=== PATIENT | male | born 1965 | race Caucasian/White ===

== ENCOUNTER 2019-01-09 13:24 | Inpatient (IN) | payer OTHER ==
[2019-01-09] MEDS ORDERED: LORazepam 2 MG/ML INJ IM STA ×2 (13:32→13:35)
[2019-01-09] MEDS ORDERED: THIAMINE 100 MG/ML 2 ML VIAL IM STA (13:33)
[2019-01-09] MEDS ORDERED: SODIUM CHLORIDE 0.9% 1,000 ML IV STA (13:33)
[2019-01-09] MEDS ORDERED: LORazepam 2 MG/ML INJ IV PRN ×3 (13:33)
[2019-01-09] MEDS: LORazepam 2 MG/ML INJ IV PRN ×5 (13:46→23:50)
--- NOTE | 2019-01-09 14:03 | ED ---
General Adult HPI - General Chief complaint: Seizure Stated complaint: Seizure Time Seen by Provider: 01/09/19 13:30 Source: patient, family Mode of arrival: ambulatory Limitations: altered mental status - History of Present Illness Initial comments: Dictation was produced using [employer] dictation software. please excuse any grammatical, word or spelling errors. Chief Complaint: 53-year-old male presents for seizures. History of Present Illness: Patient is a 53-year-old male. He is brought here by his daughter. I did not speak with the daughter yet. He was brought here after he had episode of seizure. Patient is a daily EtOH drinker. He allegedly had a seizure earlier today. They brought him here for medical evaluation. Patient is a poor historian at this time. He appears to be very agitated and diaphoretic. PHYSICAL EXAM: General Impression: Alert and oriented x2/3, agitated, diaphoretic HEENT: Normocephalic atraumatic, extra-ocular movements intact, pupils equal and reactive to light bilaterally, dry mucous membranes Cardiovascular: Tachycardic Chest: Lungs clear to auscultation bilaterally, no rhonchi, no wheeze, no rales Abdomen: Bowel sounds present, abdomen soft, non-tender, non-distended, no organomegaly Musculoskeletal: Pulses present and equal in all extremities, no peripheral edema Motor: no focal deficits noted Neurological: no focal motor or sensory deficits noted Skin: Intact with no visualized rashes Psych: Agitated, aggressive ED course: 53-year-old male presents with severe agitation after seizure. Patient is severely agitated. He was put in 4-point restraints. Patient diaphoretic. Patient moved to resuscitation bay. IV access was established patient was given multiple doses of Ativan. Laboratory evaluation obtained. CBC shows mild megaloblastic anemia and thrombocytopenia. This is likely secondary to chronic alcohol abuse and mild alcohol-induced bone marrow suppression metabolic panel was obtained. Patient has a gap acidosis with a lactic of 14.4 which is clearly secondary to seizure. No indication for antibiotics as I do not believe this is sepsis. Patient has mild transaminitis likely secondary to hepatitis from chronic alcohol abuse. Patient also has mild pancreatitis. Urinalysis is unremarkable. Rapid urine drug screen is positive for marijuana. Serum alcohol is 22. She required multiple doses of Ativan. Patient was observed in emergency department for several hours and found to be in stable condition. Patient reevaluated. He states he feels much better. His vital signs have improved. Patient's symptoms are secondary to alcohol withdrawal. Patient be admitted for continued seawall protocol and variable dose Ativan. - Related Data Allergies Allergy/AdvReac Type Severity Reaction Status Date / Time Unable to Assess Allergy Verified 01/09/19 13:54 Review of Systems ROS Statement: Those systems with pertinent positive or pertinent negative responses have been documented in the HPI. ROS Other: All systems not noted in ROS Statement are negative. Past Medical History Past Medical History: Unable to Obtain Past Surgical History: Unable to Obtain Past Alcohol Use History: Abuse, Heavy General Exam Limitations: altered mental status Course Vital Signs 01/09/19 01/09/19 13:46 14:27 Temperature 98.4 F Pulse Rate 149 H 101 H Respiratory 22 16 Rate Blood Pressure 106/30 112/62 O2 Sat by Pulse 95 Oximetry Medical Decision Making - Lab Data Result diagrams: 01/09/19 14:05 01/09/19 13:56 Lab Results 01/09/19 01/09/19 01/09/19 Range/Units 13:56 13:56 13:56 WBC (3.8-10.6) k/uL RBC (4.30-5.90) m/uL Hgb (13.0-17.5) gm/dL Hct (39.0-53.0) % MCV (80.0-100.0) fL MCH (25.0-35.0) pg MCHC (31.0-37.0) g/dL RDW (11.5-15.5) % Plt Count (150-450) k/uL Neutrophils % % Lymphocytes % % Monocytes % % Eosinophils % % Basophils % % Neutrophils # (1.3-7.7) k/uL Lymphocytes # (1.0-4.8) k/uL Monocytes # (0-1.0) k/uL Eosinophils # (0-0.7) k/uL Basophils # (0-0.2) k/uL Macrocytosis Sodium 139 (137-145) mmol/L Potassium 4.0 (3.5-5.1) mmol/L Chloride 101 (98-107) mmol/L Carbon Dioxide 13 L (22-30) mmol/L Anion Gap 25 mmol/L BUN 7 L (9-20) mg/dL Creatinine 0.97 (0.66-1.25) mg/dL Est GFR (CKD-EPI)AfAm >90 (>60 ml/min/1.73 sqM) Est GFR (CKD-EPI)NonAf 90 (>60 ml/min/1.73 sqM) Glucose 138 H (74-99) mg/dL Plasma Lactic Acid Manoj (0.7-2.0) mmol/L Calcium 9.4 (8.4-10.2) mg/dL Phosphorus 4.3 (2.5-4.5) mg/dL Magnesium 2.5 H (1.6-2.3) mg/dL Total Bilirubin 1.4 H (0.2-1.3) mg/dL AST 468 H (17-59) U/L ALT 279 H (21-72) U/L Alkaline Phosphatase 111 (38-126) U/L Creatine Kinase (55-170) U/L Total Protein 8.6 H (6.3-8.2) g/dL Albumin 5.0 (3.5-5.0) g/dL Lipase 501 H (23-300) U/L Urine Color Yellow Urine Appearance Clear (Clear) Urine pH 7.0 (5.0-8.0) Ur Specific [place] 1.008 (1.001-1.035) Urine Protein 2+ H (Negative) Urine Glucose (UA) Negative (Negative) Urine Ketones Negative (Negative) Urine Blood Small H (Negative) Urine Nitrite Negative (Negative) Urine Bilirubin Negative (Negative) Urine Urobilinogen <2.0 (<2.0) mg/dL Ur Leukocyte Esterase Negative (Negative) Urine RBC 6 H (0-5) /hpf Urine WBC <1 (0-5) /hpf Ur Squamous Epith Cells <1 (0-4) /hpf Urine Bacteria Rare H (None) /hpf Hyaline Casts 12 H (0-2) /lpf Urine Mucus Rare H (None) /hpf Urine Opiates Screen Not Detected (NotDetected) Ur Oxycodone Screen Not Detected (NotDetected) Urine Methadone Screen Not Detected (NotDetected) Ur Propoxyphene Screen Not Detected (NotDetected) Ur Barbiturates Screen Not Detected (NotDetected) U Tricyclic Antidepress Not Detected (NotDetected) Ur Phencyclidine Scrn Not Detected (NotDetected) Ur Amphetamines Screen Not Detected (NotDetected) U Methamphetamines Scrn Not Detected (NotDetected) U Benzodiazepines Scrn Not Detected (NotDetected) Urine Cocaine Screen Not Detected (NotDetected) U Marijuana (THC) Screen Detected H (NotDetected) Serum Alcohol 22 mg/dL 01/09/19 01/09/19 01/09/19 Range/Units 13:56 14:05 14:05 WBC 5.7 (3.8-10.6) k/uL RBC 4.31 (4.30-5.90) m/uL Hgb 13.2 (13.0-17.5) gm/dL Hct 43.3 (39.0-53.0) % MCV 100.4 H (80.0-100.0) fL MCH 30.7 (25.0-35.0) pg MCHC 30.6 L (31.0-37.0) g/dL RDW 13.9 (11.5-15.5) % Plt Count 132 L (150-450) k/uL Neutrophils % 68 % Lymphocytes % 19 % Monocytes % 8 % Eosinophils % 2 % Basophils % 1 % Neutrophils # 3.9 (1.3-7.7) k/uL Lymphocytes # 1.1 (1.0-4.8) k/uL Monocytes # 0.4 (0-1.0) k/uL Eosinophils # 0.1 (0-0.7) k/uL Basophils # 0.0 (0-0.2) k/uL Macrocytosis Slight Sodium (137-145) mmol/L Potassium (3.5-5.1) mmol/L Chloride (98-107) mmol/L Carbon Dioxide (22-30) mmol/L Anion Gap mmol/L BUN (9-20) mg/dL Creatinine (0.66-1.25) mg/dL Est GFR (CKD-EPI)AfAm (>60 ml/min/1.73 sqM) Est GFR (CKD-EPI)NonAf (>60 ml/min/1.73 sqM) Glucose (74-99) mg/dL Plasma Lactic Acid Manoj 14.4 H* (0.7-2.0) mmol/L Calcium (8.4-10.2) mg/dL Phosphorus (2.5-4.5) mg/dL Magnesium (1.6-2.3) mg/dL Total Bilirubin (0.2-1.3) mg/dL AST (17-59) U/L ALT (21-72) U/L Alkaline Phosphatase (38-126) U/L Creatine Kinase 293 H (55-170) U/L Total Protein (6.3-8.2) g/dL Albumin (3.5-5.0) g/dL Lipase (23-300) U/L Urine Color Urine Appearance (Clear) Urine pH (5.0-8.0) Ur Specific [place] (1.001-1.035) Urine Protein (Negative) Urine Glucose (UA) (Negative) Urine Ketones (Negative) Urine Blood (Negative) Urine Nitrite (Negative) Urine Bilirubin (Negative) Urine Urobilinogen (<2.0) mg/dL Ur Leukocyte Esterase (Negative) Urine RBC (0-5) /hpf Urine WBC (0-5) /hpf Ur Squamous Epith Cells (0-4) /hpf Urine Bacteria (None) /hpf Hyaline Casts (0-2) /lpf Urine Mucus (None) /hpf Urine Opiates Screen (NotDetected) Ur Oxycodone Screen (NotDetected) Urine Methadone Screen (NotDetected) Ur Propoxyphene Screen (NotDetected) Ur Barbiturates Screen (NotDetected) U Tricyclic Antidepress (NotDetected) Ur Phencyclidine Scrn (NotDetected) Ur Amphetamines Screen (NotDetected) U Methamphetamines Scrn (NotDetected) U Benzodiazepines Scrn (NotDetected) Urine Cocaine Screen (NotDetected) U Marijuana (THC) Screen (NotDetected) Serum Alcohol mg/dL Disposition Clinical Impression: Alcohol withdrawal Disposition: ADMITTED IP TO THIS [facility] Condition: Fair Referrals: None,Stated [Primary Care Provider] - 1-2 days Decision Time: 15:20
[2019-01-09 14:22] LABS: Appearance,Urine Clear (Clear); Bacteria,Urine Rare /hpf; Bilirubin,Urine Negative (Negative); Blood,Urine Small (Negative); Color,Urine Yellow; Glucose,Urine (UA) Negative (Negative); Hyaline Casts,Urine 12 /lpf (0-2); Ketones,Urine Negative (Negative); Leukocyte Esterase,Urine Negative (Negative); Mucus,Urine Rare /hpf; Nitrite,Urine Negative (Negative); Protein,Urine 2+ (Negative); RBC,Urine 6 /hpf (0-5); Specific Gravity,Urine 1.008 (1.001-1.035); Squamous Epithelial Cell,Urine <1 /hpf (0-4); Urobilinogen,Urine <2.0 mg/dL (<2.0); WBC,Urine <1 /hpf (0-5)
[2019-01-09 14:24] LABS: Basophils % (A) 1 %; Eosinophils # (A) 0.1 k/uL (0-0.7); Eosinophils % (A) 2 %; HCT 43.3 % (39.0-53.0); HGB 13.2 gm/dL (13.0-17.5); Lymphocytes # (A) 1.1 k/uL (1.0-4.8); Lymphocytes % (A) 19 %; MCH 30.7 pg (25.0-35.0); MCHC 30.6 g/dL (31.0-37.0); MCV 100.4 fL (80.0-100.0); Macrocytosis Slight; Mean Platelet Volume 9.1; Monocytes # (A) 0.4 k/uL (0-1.0); Monocytes % (A) 8 %; Neutrophils # (A) 3.9 k/uL (1.3-7.7); Neutrophils % (A) 68 %; Platelet Count 132 k/uL (150-450); RBC 4.31 m/uL (4.30-5.90); RDW 13.9 % (11.5-15.5); WBC 5.7 k/uL (3.8-10.6)
[2019-01-09 14:24] LABS: Magnesium 2.5 mg/dL (1.6-2.3); Phosphorus 4.3 mg/dL (2.5-4.5)
[2019-01-09 14:31] LABS: ALT 279 U/L (21-72); AST 468 U/L (17-59); Alkaline Phosphatase 111 U/L (38-126); Anion Gap 25 mmol/L; Blood Urea Nitrogen 7 mg/dL (9-20); Calcium 9.4 mg/dL (8.4-10.2); Carbon Dioxide 13 mmol/L (22-30); Chloride 101 mmol/L (98-107); Glucose 138 mg/dL (74-99); Sodium 139 mmol/L (137-145); Total Bilirubin 1.4 mg/dL (0.2-1.3); Total Protein 8.6 g/dL (6.3-8.2)
[2019-01-09 14:43] LABS: Amphetamine Screen,Urine Not Detected (NotDetected); Barbiturate Screen,Urine Not Detected (NotDetected); Benzodiazepines Screen,Urine Not Detected (NotDetected); Cocaine Screen,Urine Not Detected (NotDetected); Methadone Screen, Urine Not Detected (NotDetected); Opiate Screen,Urine Not Detected (NotDetected); Oxycodone Screen, Urine Not Detected (NotDetected); Phencyclidine Screen,Urine Not Detected (NotDetected); Tricyclic Antidepressant,Urine Not Detected (NotDetected); Urn Cannabinoid Scrn Detected (NotDetected)
--- NOTE | 2019-01-09 14:50 | CT ---
EXAMINATION TYPE: CT brain wo con DATE OF EXAM: 01/09/2019 COMPARISON: NONE HISTORY: pain CT DLP: 1053.4 mGycm Automated exposure control for dose reduction was used. FINDINGS: Focal area of low attenuation in the basal ganglia compatible with remote lacunar infarction. No midl ine shift or mass effect. Mild generalized degenerative change. Calvarium intact. No acute hemorrhage. Changes of chronic sinusitis. Prominent CSF attenuation the posterior fossa compatible with prominent cisterna magna or less likely small arachnoid cyst. IMPRESSION: NO ACUTE HEMORRHAGE OR MASS EFFECT. IF THERE IS CONCERN FOR ACUTE ISCHEMIA CORRELATE WITH MRI CLIN ICALLY WARRANTED.
[2019-01-09] MEDS ORDERED: NALOXONE 0.4 MG/ML 1 ML VIAL IV PRN (15:21)
--- NOTE | 2019-01-09 16:05 | ED ---
Medical Decision Making - Lab Data Result diagrams: 01/09/19 14:05 01/09/19 13:56 Lab Results 01/09/19 01/09/19 01/09/19 Range/Units 13:56 13:56 13:56 WBC (3.8-10.6) k/uL RBC (4.30-5.90) m/uL Hgb (13.0-17.5) gm/dL Hct (39.0-53.0) % MCV (80.0-100.0) fL MCH (25.0-35.0) pg MCHC (31.0-37.0) g/dL RDW (11.5-15.5) % Plt Count (150-450) k/uL Neutrophils % % Lymphocytes % % Monocytes % % Eosinophils % % Basophils % % Neutrophils # (1.3-7.7) k/uL Lymphocytes # (1.0-4.8) k/uL Monocytes # (0-1.0) k/uL Eosinophils # (0-0.7) k/uL Basophils # (0-0.2) k/uL Macrocytosis Sodium 139 (137-145) mmol/L Potassium 4.0 (3.5-5.1) mmol/L Chloride 101 (98-107) mmol/L Carbon Dioxide 13 L (22-30) mmol/L Anion Gap 25 mmol/L BUN 7 L (9-20) mg/dL Creatinine 0.97 (0.66-1.25) mg/dL Est GFR (CKD-EPI)AfAm >90 (>60 ml/min/1.73 sqM) Est GFR (CKD-EPI)NonAf 90 (>60 ml/min/1.73 sqM) Glucose 138 H (74-99) mg/dL Plasma Lactic Acid Manoj (0.7-2.0) mmol/L Calcium 9.4 (8.4-10.2) mg/dL Phosphorus 4.3 (2.5-4.5) mg/dL Magnesium 2.5 H (1.6-2.3) mg/dL Total Bilirubin 1.4 H (0.2-1.3) mg/dL AST 468 H (17-59) U/L ALT 279 H (21-72) U/L Alkaline Phosphatase 111 (38-126) U/L Creatine Kinase (55-170) U/L Total Protein 8.6 H (6.3-8.2) g/dL Albumin 5.0 (3.5-5.0) g/dL Lipase 501 H (23-300) U/L Urine Color Yellow Urine Appearance Clear (Clear) Urine pH 7.0 (5.0-8.0) Ur Specific [place] 1.008 (1.001-1.035) Urine Protein 2+ H (Negative) Urine Glucose (UA) Negative (Negative) Urine Ketones Negative (Negative) Urine Blood Small H (Negative) Urine Nitrite Negative (Negative) Urine Bilirubin Negative (Negative) Urine Urobilinogen <2.0 (<2.0) mg/dL Ur Leukocyte Esterase Negative (Negative) Urine RBC 6 H (0-5) /hpf Urine WBC <1 (0-5) /hpf Ur Squamous Epith Cells <1 (0-4) /hpf Urine Bacteria Rare H (None) /hpf Hyaline Casts 12 H (0-2) /lpf Urine Mucus Rare H (None) /hpf Urine Opiates Screen Not Detected (NotDetected) Ur Oxycodone Screen Not Detected (NotDetected) Urine Methadone Screen Not Detected (NotDetected) Ur Propoxyphene Screen Not Detected (NotDetected) Ur Barbiturates Screen Not Detected (NotDetected) U Tricyclic Antidepress Not Detected (NotDetected) Ur Phencyclidine Scrn Not Detected (NotDetected) Ur Amphetamines Screen Not Detected (NotDetected) U Methamphetamines Scrn Not Detected (NotDetected) U Benzodiazepines Scrn Not Detected (NotDetected) Urine Cocaine Screen Not Detected (NotDetected) U Marijuana (THC) Screen Detected H (NotDetected) Serum Alcohol 22 mg/dL 01/09/19 01/09/19 01/09/19 Range/Units 13:56 14:05 14:05 WBC 5.7 (3.8-10.6) k/uL RBC 4.31 (4.30-5.90) m/uL Hgb 13.2 (13.0-17.5) gm/dL Hct 43.3 (39.0-53.0) % MCV 100.4 H (80.0-100.0) fL MCH 30.7 (25.0-35.0) pg MCHC 30.6 L (31.0-37.0) g/dL RDW 13.9 (11.5-15.5) % Plt Count 132 L (150-450) k/uL Neutrophils % 68 % Lymphocytes % 19 % Monocytes % 8 % Eosinophils % 2 % Basophils % 1 % Neutrophils # 3.9 (1.3-7.7) k/uL Lymphocytes # 1.1 (1.0-4.8) k/uL Monocytes # 0.4 (0-1.0) k/uL Eosinophils # 0.1 (0-0.7) k/uL Basophils # 0.0 (0-0.2) k/uL Macrocytosis Slight Sodium (137-145) mmol/L Potassium (3.5-5.1) mmol/L Chloride (98-107) mmol/L Carbon Dioxide (22-30) mmol/L Anion Gap mmol/L BUN (9-20) mg/dL Creatinine (0.66-1.25) mg/dL Est GFR (CKD-EPI)AfAm (>60 ml/min/1.73 sqM) Est GFR (CKD-EPI)NonAf (>60 ml/min/1.73 sqM) Glucose (74-99) mg/dL Plasma Lactic Acid Manoj 14.4 H* (0.7-2.0) mmol/L Calcium (8.4-10.2) mg/dL Phosphorus (2.5-4.5) mg/dL Magnesium (1.6-2.3) mg/dL Total Bilirubin (0.2-1.3) mg/dL AST (17-59) U/L ALT (21-72) U/L Alkaline Phosphatase (38-126) U/L Creatine Kinase 293 H (55-170) U/L Total Protein (6.3-8.2) g/dL Albumin (3.5-5.0) g/dL Lipase (23-300) U/L Urine Color Urine Appearance (Clear) Urine pH (5.0-8.0) Ur Specific [place] (1.001-1.035) Urine Protein (Negative) Urine Glucose (UA) (Negative) Urine Ketones (Negative) Urine Blood (Negative) Urine Nitrite (Negative) Urine Bilirubin (Negative) Urine Urobilinogen (<2.0) mg/dL Ur Leukocyte Esterase (Negative) Urine RBC (0-5) /hpf Urine WBC (0-5) /hpf Ur Squamous Epith Cells (0-4) /hpf Urine Bacteria (None) /hpf Hyaline Casts (0-2) /lpf Urine Mucus (None) /hpf Urine Opiates Screen (NotDetected) Ur Oxycodone Screen (NotDetected) Urine Methadone Screen (NotDetected) Ur Propoxyphene Screen (NotDetected) Ur Barbiturates Screen (NotDetected) U Tricyclic Antidepress (NotDetected) Ur Phencyclidine Scrn (NotDetected) Ur Amphetamines Screen (NotDetected) U Methamphetamines Scrn (NotDetected) U Benzodiazepines Scrn (NotDetected) Urine Cocaine Screen (NotDetected) U Marijuana (THC) Screen (NotDetected) Serum Alcohol mg/dL Disposition Clinical Impression: Alcohol withdrawal Disposition: ADMITTED IP TO THIS [facility] Condition: Fair Referrals: None,Stated [Primary Care Provider] - 1-2 days Procedures - Restraint - Face to Face Restraint Occurrence 1 Patient's Immediate Situation: Endangers self safety, Endangers others' safety, Endangers staff safety, Violent behavior, Other (see comment) Patient's Reaction to the Intervention: Aggressive, Combative, Restless Patient's Medical & Behavioral Condition: Awake, Alert, Agitated Need to Continue or Terminate Restraint or Seclusion: Continue Face to Face Eval of Restraint Date: 01/09/19 Face to Face Eval of Restraint Time: 13:42
[2019-01-09] MEDS ORDERED: ALPRAZolam 0.25 MG TAB PO PRN (17:33)
[2019-01-09] MEDS ORDERED: HYDROcodone/APAP 5-325MG 1 EACH TAB PO PRN (17:33)
[2019-01-09] MEDS ORDERED: HYDROmorphone 0.5 MG/0.5 ML SYRINGE IVP PRN (17:33)
[2019-01-09] MEDS ORDERED: ACETAMINOPHEN TAB 500 MG TAB PO PRN (17:33)
[2019-01-09] MEDS ORDERED: TEMAZEPAM 15 MG CAP PO PRN (17:33)
[2019-01-09] MEDS ORDERED: SODIUM CHLORIDE 0.9% 1,000 ML with POTASSIUM CHLORIDE 20 MEQ, MVI, ADULT NO.4 WITH VIT ... IV SCH ×5 (17:45)
[2019-01-09 17:47] LABS: INR 0.9 (<1.2); Prothrombin Time 10.1 sec (9.0-12.0)
--- NOTE | 2019-01-09 18:09 | XR ---
EXAMINATION TYPE: XR chest 1V portable DATE OF EXAM: 01/09/2019 COMPARISON: NONE HISTORY: Fever TECHNIQUE: Single frontal view of the chest is obtained. FINDINGS: Single frontal view shows probably a 2 cm poorly marginated infiltrate in the left midlung . The other lung diallo are clear. Heart and mediastinum are normal. There is no pleural effusion. Tam ny thorax appears intact. IMPRESSION: Small infiltrate left midlung.
[2019-01-09] MEDS ORDERED: HALOPERIDOL LACTATE 5 MG/ML 1 ML VIAL IVP PRN (19:43)
[2019-01-09] MEDS: THIAMINE 100 MG TAB PO SCH (20:18)
--- NOTE | 2019-01-09 20:31 | HP ---
HISTORY AND PHYSICAL DATE OF SERVICE: 01/09/2019 CHIEF COMPLAINT: Alcohol withdrawal and seizures. HISTORY OF PRESENT ILLNESS: This 53-year-old gentleman with a past medical history of unknown medical problems is being followed by no primary physician, [place]; he was visiting family [facility]. Patient was apparently drinking up to case of alcohol, and the patient apparently had seizures and was confused. The patient apparently was trying to stop drinking, and he was taken to [facility] and was admitted for further evaluation. Currently the patient is confused and unable to give a coherent history. Most of the history is taken from my discussion with staff and review of the chart. PAST MEDICAL HISTORY: No history of any significant cardiorespiratory illness. MEDICATIONS: None. ALLERGIES: NONE. FAMILY HISTORY: No history of heart disease or strokes in the family. SOCIAL HISTORY: History of alcohol. No history of smoking. REVIEW OF SYSTEMS: ENT: No diminished hearing. No diminished vision. CARDIOVASCULAR SYSTEM: No angina, palpitations. RESPIRATORY SYSTEM: As mentioned earlier. GI: As mentioned earlier. : No dysuria or retention. NERVOUS SYSTEM: As mentioned earlier. ALLERGY/IMMUNOLOGY: No asthma, hayfever. MUSCULOSKELETAL: As mentioned earlier. HEMATOLOGY/ONCOLOGY: No history of anemia. ENDOCRINE: No history of diabetes, hypothyroidism. CONSTITUTIONAL: As mentioned earlier. DERMATOLOGY: Negative. RHEUMATOLOGY: Negative. PSYCHIATRY: As mentioned earlier. PHYSICAL EXAMINATION: Patient Pulse is 78, blood pressure 125/72, respiration 24, temperature 99.6, pulse ox 98% on room air. HEENT: Conjunctivae normal. Oral mucosa moist. NECK: No jugular venous distention. No carotid bruit. No lymph node enlargement. CARDIOVASCULAR SYSTEM: S1, S2 muffled. RESPIRATORY SYSTEM: Breath sounds diminished at the bases. A few scattered rhonchi. ABDOMEN: Soft. Non-tender. No mass palpable. LEGS: No edema. No swelling. NERVOUS SYSTEM: Higher functions as mentioned earlier. Moves all 4 limbs. No focal motor or sensory deficit. Cranial nerves 2 through 12 grossly intact. Moves all 4 limbs. No sensory dysfunction. No focal deficits noted. No sensory abnormalities. LABS/INVESTIGATIONS: WBC 5.7, hemoglobin 13.2, sodium 139, potassium 4, glucose 138. Lactic acid 14.4 and 1.1, magnesium 2.5. Total bilirubin 1.4, AST is 468, ALT is 279, total protein is 8.6. THC positive. Serum alcohol 22. ASSESSMENT: 1. Acute delirium tremens and alcohol withdrawal. 2. Seizures, generalized tonic-clonic, possibly related to alcohol. 3. Increased mean corpuscular volume. 4. Thrombocytopenia. 5. Elevated lactic acid secondary to dehydration, possibly. 6. Increased AST, ALT, possibly alcoholic hepatitis. 7. Increased creatine kinase. 8. History of tetrahydrocannabinol. 9. FULL CODE. RECOMMENDATIONS AND DISCUSSION: In this 53-year-old gentleman who presented with multiple complex medical issues , we would recommend continuing the current medications, continue with symptomatic treatment. CIWA protocol. Multivitamin supplementation. DVT prophylaxis. Symptomatic treatment. Prognosis guarded because of multiple complex medical issues. Neuro checks and neurovascular workup. Prognosis guarded because of multiple complex medical issues. Further recommendations to follow. I also recommended that the family work with the social media manager for possible alcohol rehab and also follow up closely with a primary physician in the outpatient setting. Further recommendations to follow. MARCO / CHARLOTTEN: [id number] / MTDD
[2019-01-09] MEDS: HEPARIN SODIUM,PORCINE 5,000 UNIT/ML 1 ML VIAL SQ SCH (20:34)
--- NOTE | 2019-01-09 20:34 | US ---
EXAMINATION TYPE: US carotid duplex BILAT DATE OF EXAM: 01/09/2019 COMPARISON: NONE CLINICAL HISTORY: stroke. Stroke Pt unable to lie still during exam EXAM MEASUREMENTS: RIGHT: Peak Systolic Velocity (PSV) cm/sec ----- Right CCA: 85.3 ----- Right ICA: 71.4 ----- Right ECA: 94.3 ICA/CCA ratio: 0.8 RIGHT: End Diastole cm/sec ----- Right CCA: 18.0 ----- Right ICA: 20.0 ----- Right ECA: 16.7 LEFT: Peak Systolic Velocity (PSV) cm/sec ----- Left CCA: 69.1 ----- Left ICA: 83.4 ----- Left ECA: 145.7 ICA/CCA ratio: 1.2 LEFT: End Diastole cm/sec ----- Left CCA: 14.2 ----- Left ICA: 14.2 ----- Left ECA: 19.5 VERTEBRALS (direction of flow): Right Vertebral: Antegrade Left Vertebral: Antegrade Rhythm: Normal Slightly elevated velocities left ECA, otherwise appeared wnl bilaterally IMPRESSION: There is antegrade flow in the vertebral arteries. Images in measurements suggest less t maria 25% stenosis in both internal carotid arteries. Criteria for Assigning % of Stenosis / Diameter reduction (Estimation based on the indirect measurements of the internal carotid artery velocities (ICA PSV). 1. Normal (no stenosis)=ICA PSV < 125 cm/s: ratio < 2.0: ICA EDV<40 cm/s. 2. Less than 50% stenosis=ICA PSV < 125 cm/s: ratio < 2.0: ICA EDV<40 cm/s. 3. 50 to 69% stenosis=ICA PSV of 125 to 230 cm/s: ration 2.0 ? 4.0: ICA EDV 40-100 cm/s. 4. Greater than 70% stenosis to near occlusion= ICA PSV > 230 cm/s: ratio > 4.0: ICA EDV > 100 cm/s. 5. Near occlusion= ICA PSV velocities may be low or undetectable: variable ratio and ICA EDV. 6. Total occlusion=unable to detect flow.
[2019-01-10] MEDS: LORazepam 2 MG/ML INJ IV PRN ×7 (04:00→22:44)
[2019-01-10] MEDS: [UNRECOGNIZED DRUG - REMARK] IV SCH ×18 (06:17→08:59)
[2019-01-10] MEDS: PANTOPRAZOLE 40 MG TABLET PO SCH (06:40)
[2019-01-10 07:03] LABS: Basophils % (A) 1 %; Eosinophils # (A) 0.2 k/uL (0-0.7); Eosinophils % (A) 4 %; HCT 42.3 % (39.0-53.0); HGB 13.2 gm/dL (13.0-17.5); Lymphocytes # (A) 0.7 k/uL (1.0-4.8); Lymphocytes % (A) 17 %; MCH 30.3 pg (25.0-35.0); MCHC 31.1 g/dL (31.0-37.0); MCV 97.4 fL (80.0-100.0); Mean Platelet Volume 8.1; Monocytes # (A) 0.3 k/uL (0-1.0); Monocytes % (A) 7 %; Neutrophils % (A) 70 %; RBC 4.34 m/uL (4.30-5.90); WBC 4.3 k/uL (3.8-10.6)
[2019-01-10 07:28] LABS: ALT 188 U/L (21-72); AST 242 U/L (17-59); Albumin 3.8 g/dL (3.5-5.0); Alkaline Phosphatase 78 U/L (38-126); Anion Gap 7 mmol/L; Blood Urea Nitrogen 7 mg/dL (9-20); Calcium 8.5 mg/dL (8.4-10.2); Carbon Dioxide 26 mmol/L (22-30); Chloride 102 mmol/L (98-107); Glucose 86 mg/dL (74-99); Magnesium 2.3 mg/dL (1.6-2.3); Potassium 3.7 mmol/L (3.5-5.1); Sodium 135 mmol/L (137-145); Total Bilirubin 1.8 mg/dL (0.2-1.3); Total Protein 6.9 g/dL (6.3-8.2)
[2019-01-10] MEDS: HEPARIN SODIUM,PORCINE 5,000 UNIT/ML 1 ML VIAL SQ SCH ×2 (08:56→21:29)
[2019-01-10 09:19] LABS: Platelet Count 98 k/uL (150-450)
[2019-01-10] MEDS: THIAMINE 100 MG TAB PO SCH ×2 (10:49→16:53)
--- NOTE | 2019-01-10 13:30 | ECHOF ---
Referral Reason:Stroke MEASUREMENTS -------- HEIGHT: 175.3 cm WEIGHT: 67.6 kg BP: IVSd: 1.0 cm (0.6 - 1.1) LVIDd: 4.5 cm (3.9 - 5.3) LVPWd: 1.0 cm (0.6 - 1.1) IVSs: 1.4 cm LVIDs: 3.5 cm LVPWs: 1.4 cm Ao Diam: 3.4 cm (2.0 - 3.7) AV Cusp: 1.6 cm (1.5 - 2.6) LA Diam: 3.0 cm (2.7 - 3.8) MV EXCURSION: 19.436 mm (> 18.000) MV EF SLOPE: 107 mm/s (70 - 150) EPSS: 0.8 cm MV E Thomas: 0.55 m/s MV DecT: 174 ms MV A Thomas: 0.63 m/s MV E/A Ratio: 0.87 RAP: 5.00 mmHg RVSP: 18.23 mmHg FINDINGS -------- Sinus rhythm. This was a technically good study. LV size, wall thickness and systolic function are normal, with an EF greater than 55%. The left jo ann tricular size is normal. The right ventricle is normal in size. The left atrial size is normal. The right atrial size is normal. The aortic valve is trileaflet, and appears structurally normal. No aortic stenosis or regurgitation. Mild mitral regurgitation is present. Mild tricuspid regurgitation present. There is no evidence of pulmonary hypertension. The right v entricular systolic pressure, as measured by Doppler, is 18.23mmHg. There is no pulmonic regurgitation present. The aortic root size is normal. There is no pericardial effusion. CONCLUSIONS -------- 1. LV size, wall thickness and systolic function are normal, with an EF greater than 55%. 2. The left ventricular size is normal. 3. The right ventricle is normal in size. 4. The left atrial size is normal. 5. The right atrial size is normal. 6. The aortic valve is trileaflet, and appears structurally normal. No aortic stenosis or regurgitati on. 7. Mild mitral regurgitation is present. 8. Mild tricuspid regurgitation present. 9. There is no evidence of pulmonary hypertension. 10. The right ventricular systolic pressure, as measured by Doppler, is 18.23mmHg. 11. There is no pulmonic regurgitation present. 12. The aortic root size is normal. 13. There is no pericardial effusion. TRUCK RENTAL SERVICE ATTENDANT: Mignon Mae RDCS
[2019-01-10] MEDS ORDERED: cloNIDine HCL 0.1 MG TAB PO PRN (15:41)
[2019-01-10] MEDS ORDERED: HALOPERIDOL LACTATE 5 MG/ML 1 ML VIAL IM PRN (15:44)
[2019-01-10] MEDS: cloNIDine HCL 0.1 MG TAB PO SCH ×2 (17:06→21:30)
--- NOTE | 2019-01-10 17:29 | PN ---
PROGRESS NOTE DATE OF SERVICE: 01/10/2019 This 53-year-old gentleman was admitted with acute alcohol withdrawal and delirium tremens; also had seizures. The patient is confused, restless at this time. [facility] protocol is being followed at this time. A 2D echo with Doppler was done per Cardiology, which showed ejection fraction more than 55% and no significant valvular abnormalities also. The patient is being closely monitored at this time. REVIEW OF SYSTEMS: Could not be taken, the patient is confused. CURRENT MEDICATIONS: Reviewed and include: 1. Tylenol 500 mg q.6h p.r.n. 2. [place] 5 mg. 3. Xanax 0.5 t.i.d. 4. Haldol 0.5 q.6h p.r.n. 5. Heparin subcu b.i.d. 6. Dilaudid 2.5 q.6h p.r.n. 7. Ativan 1 mg q.2h p.r.n. 8. protocol. 9. Protonix 40 mg daily. 10.Restoril. 11.Vitamin B1. PHYSICAL EXAM: Patient is alert, oriented x1. Pulse is 92, blood pressure 132/70, respiration 18, temperature 97.2, pulse ox 98% on room air HEENT: Conjunctivae normal. Oral mucosa moist. NECK: No jugular venous distention. No lymph node enlargement. CARDIOVASCULAR: S1, S2. RESPIRATORY: Diminished breath sounds at the bases. No rhonchi, no crackles. ABDOMEN: Soft, nontender. LEGS: No swelling. NERVOUS SYSTEM: Diffusely weak and tremulous also. LAB INVESTIGATIONS: At this time shows WBC ( ), sodium 135, potassium 3.7. Albumin is 1.8. AST is 242 and ALT is 148. Cultures are negative so far. ASSESSMENT: 1. Acute delirium tremens and alcohol withdrawal. 2. Change in mental status, acute metabolic encephalopathy secondary to delirium tremens. 3. Seizure, generalized tonic-clonic possibly related to alcohol. 4. Increased MCV. 5. Thrombocytopenia. 6. Elevated lactic acid secondary dehydration possibly. 7. Increased AST, ALT, possibly alcoholic hepatitis. 8. Increased creatine kinase. 9. History of THC. 10.FULL CODE. RECOMMENDATIONS AND DISCUSSION: I recommend to continue current management, continue to monitor, continue symptomatic treatment. Otherwise, continue with the [facility] protocol. The patient also had a complete neurovascular workup. At this point, carotid Doppler showed no acute abnormality. Otherwise, we will continue to monitor. I would also recommend an EEG. Continue with Haldol and Ativan. Guarded prognosis. MMODL / IJN: [id number] / MTDD
[2019-01-11] MEDS: LORazepam 2 MG/ML INJ IV PRN ×6 (01:27→22:40)
[2019-01-11] MEDS: [UNRECOGNIZED DRUG - REMARK] IV SCH ×12 (05:39→18:52)
[2019-01-11] MEDS: PANTOPRAZOLE 40 MG TABLET PO SCH (05:52)
[2019-01-11 06:29] LABS: Basophils % (A) 0 %; Eosinophils # (A) 0.3 k/uL (0-0.7); Eosinophils % (A) 6 %; HCT 39.7 % (39.0-53.0); HGB 12.7 gm/dL (13.0-17.5); Lymphocytes # (A) 1.1 k/uL (1.0-4.8); Lymphocytes % (A) 23 %; MCH 31.1 pg (25.0-35.0); MCV 97.2 fL (80.0-100.0); Mean Platelet Volume 8.3; Monocytes # (A) 0.5 k/uL (0-1.0); Monocytes % (A) 10 %; Neutrophils # (A) 2.6 k/uL (1.3-7.7); Neutrophils % (A) 56 %; Platelet Count 112 k/uL (150-450); RBC 4.09 m/uL (4.30-5.90); RDW 13.7 % (11.5-15.5); WBC 4.6 k/uL (3.8-10.6)
[2019-01-11 06:47] LABS: ALT 133 U/L (21-72); AST 160 U/L (17-59); Albumin 3.4 g/dL (3.5-5.0); Alkaline Phosphatase 72 U/L (38-126); Anion Gap 7 mmol/L; Blood Urea Nitrogen 9 mg/dL (9-20); Calcium 8.4 mg/dL (8.4-10.2); Carbon Dioxide 24 mmol/L (22-30); Chloride 104 mmol/L (98-107); Glucose 91 mg/dL (74-99); Magnesium 2.2 mg/dL (1.6-2.3); Potassium 4.1 mmol/L (3.5-5.1); Sodium 135 mmol/L (137-145); Total Bilirubin 1.6 mg/dL (0.2-1.3); Total Protein 6.4 g/dL (6.3-8.2)
[2019-01-11] MEDS: HEPARIN SODIUM,PORCINE 5,000 UNIT/ML 1 ML VIAL SQ SCH ×2 (10:06→22:44)
[2019-01-11] MEDS: cloNIDine HCL 0.1 MG TAB PO SCH ×3 (10:10→23:36)
[2019-01-11] MEDS: THIAMINE 100 MG TAB PO SCH ×2 (13:31→17:40)
[2019-01-11] MEDS ORDERED: LOPERAMIDE 2 MG CAP PO PRN (15:11)
--- NOTE | 2019-01-11 18:54 | PN ---
PROGRESS NOTE DATE OF SERVICE: 01/11/2019 This 53-year-old gentleman admitted with acute delirium tremens after alcohol intoxication is being closely monitored. No chest pain. No palpitations. No fever. The patient is complaining of diarrhea and some incontinence also. EXAM: Alert and oriented x3. The pulse is 90, blood pressure 130/61, respiration 18, temperature 98.2, pulse ox 100% on room air. HEENT: Conjunctivae normal. Oral mucosa moist. NECK: No jugular venous distention. No lymph node enlargement. CARDIOVASCULAR: S1, S2. RESPIRATORY: Diminished breath sounds at the bases. Bilateral scattered rhonchi, no crackles. ABDOMEN: Soft, nontender. LEGS: No swelling. NERVOUS SYSTEM: No focal deficits. Tremors are much less. LABS: WBC 4.2, hemoglobin 12.7, sodium 135. Bilirubin is 1.6, AST is 160. ASSESSMENT: 1. Acute delirium tremens and alcohol withdrawal. 2. Change in mental status, acute metabolic encephalopathy secondary to delirium tremens. 3. Seizure disorder, generalized tonic-clonic, possibly related to alcohol. 4. Diarrhea, possibly related to alcohol, possibly viral. 5. Increased MCV. 6. Alcoholic hepatitis. 7. Thrombocytopenia. 8. Elevated lactic acid from dehydration, present on admission. 9. Increased creatinine kinase. 10.History of THC. 11.FULL CODE. RECOMMENDATIONS AND DISCUSSION: I recommend to continue current medication, continue to monitor, continue symptomatic treatment. I discussed with the family. Family is planning to talk with clinical social work aide and disease case manager for possible alcohol rehab. Otherwise, continue the rest of medications. Check C difficile and if it is negative the patient may be given Imodium p.r.n. Further recommendations to follow. MMODL / IJN: [id number] /
[2019-01-12] MEDS: [UNRECOGNIZED DRUG - REMARK] IV SCH ×12 (05:40→08:15)
[2019-01-12 07:57] VITALS: BP 107/70; PULSE 72; RESP 16; TEMP 97.4
[2019-01-12] MEDS: PANTOPRAZOLE 40 MG TABLET PO SCH (08:11)
[2019-01-12] MEDS: HEPARIN SODIUM,PORCINE 5,000 UNIT/ML 1 ML VIAL SQ SCH (08:11)
[2019-01-12] MEDS: cloNIDine HCL 0.1 MG TAB PO SCH (08:11)
[2019-01-12 10:02] LABS: Basophils % (A) 0 %; Eosinophils # (A) 0.2 k/uL (0-0.7); Eosinophils % (A) 4 %; HCT 40.7 % (39.0-53.0); HGB 12.6 gm/dL (13.0-17.5); Lymphocytes # (A) 0.8 k/uL (1.0-4.8); Lymphocytes % (A) 17 %; MCH 30.8 pg (25.0-35.0); MCHC 31.1 g/dL (31.0-37.0); Mean Platelet Volume 7.7; Monocytes # (A) 0.4 k/uL (0-1.0); Monocytes % (A) 9 %; Neutrophils % (A) 67 %; Platelet Count 164 k/uL (150-450); RBC 4.11 m/uL (4.30-5.90); RDW 13.8 % (11.5-15.5); WBC 4.4 k/uL (3.8-10.6)
[2019-01-12 10:06] LABS: ALT 132 U/L (21-72); AST 210 U/L (17-59); Albumin 3.5 g/dL (3.5-5.0); Alkaline Phosphatase 70 U/L (38-126); Anion Gap 4 mmol/L; Blood Urea Nitrogen 10 mg/dL (9-20); Calcium 8.7 mg/dL (8.4-10.2); Carbon Dioxide 27 mmol/L (22-30); Chloride 105 mmol/L (98-107); Glucose 98 mg/dL (74-99); Sodium 136 mmol/L (137-145); Total Protein 6.6 g/dL (6.3-8.2)
--- NOTE | 2019-01-13 08:39 | EEG ---
ELECTROENCEPHALOGRAM REPORT DATE OF SERVICE: 01/12/2019. ELECTROENCEPHALOGRAM (EEG) TECHNIQUE: A routine 18 channel EEG was performed with video using the 10/20 international placement system. HISTORY: Patient experiencing delirium tremors. Possible seizure disorder? CURRENT MEDICATIONS: Vitamin B1, Restoril, Protonix, Ativan, hydromorphone. STUDY DURATION: 24 minutes. FINDINGS: BACKGROUND: The background activity consists of 8-9 hertz rhythmic waveforms, symmetric through both posterior quadrants. ACTIVATION: Hyperventilation: Induced mild physiological slowing. Photic stimulation: Symmetric driving seen. Sleep: Drowsy. Abnormalities: None. Please note that a mild excess of beta frequency activity was noted during the recording. This is not epileptiform in nature. In may in part be due to medication effect. IMPRESSION: Normal EEG. No epileptiform activity was present. No seizures were recorded. MMODL / IJN: [id number] /
--- NOTE | 2019-01-13 08:57 | DS ---
DISCHARGE SUMMARY DATE OF SERVICE: 01/12/2019 FINAL DIAGNOSES: 1. Acute delirium tremens with alcohol withdrawal. 2. Change in mental status, acute metabolic encephalopathy secondary to delirium tremens. 3. Seizure disorder, generalized tonic, clonic possibly related to alcohol. 4. Diarrhea, possibly related alcohol, possibly viral. 5. Increased MCV. 6. Alcoholic hepatitis. 7. Thrombocytopenia. 8. Elevated lactic acid from dehydration, present on admission. 9. Increased creatine kinase. 10.History of THC. 11.FULL CODE. DISCHARGE DISPOSITION: The patient will be discharged in stable condition with guarded prognosis. HISTORY OF PRESENT ILLNESS: This 53-year-old gentleman with a past medical history of multiple medical problems admitted with alcohol intoxication and multiple other medical issues, treated symptomatically with [facility] protocol. This patient improved significantly. Outpatient follow up and as well as alcohol rehab is recommended. On exam, vitals are stable. CARDIOVASCULAR: S1, S2, muffled. ABDOMEN: Soft. NERVOUS SYSTEM: No focal deficits. DISCHARGE ADVICE: 1. Diet is cardiac. 2. Activity limited until followup. 3. Follow up with Dr. Veliz in 1 week. 4. Follow up with rehab. Medications are: 1. Tylenol p.r.n. 2. Catap[place] 0.1 mg p.o. b.i.d. 3. Folic acid 1 mg daily. 4. Ativan 1 mg t.i.d. p.r.n. 5. Multivitamins one p.o. daily. 6. Vitamin B1, 100 mg p.o. daily. Once again, the patient will be discharged in a stable condition with guarded prognosis. MMODL / IJN: [id number] / MTDD
== END 2019-01-12 13:50 | disposition home or self-care (01) | DRG 896 ==
LOC: EC 13:24 → 3SCARD 15:21 → 4MS4W 01-11 18:12
PROVIDERS: ADMIT Internal Medicine; ATTEND Internal Medicine
DX: F10.231 Alcohol dependence with withdrawal delirium (principal); G93.41 Metabolic encephalopathy; K85.90 Acute pancreatitis without necrosis or infection, unspecified; E87.2 Acidosis; G40.409 Other generalized epilepsy and epileptic syndromes, not intractable, without status epilepticus; D69.6 Thrombocytopenia, unspecified; D53.1 Other megaloblastic anemias, not elsewhere classified; K70.10 Alcoholic hepatitis without ascites; E86.0 Dehydration; R45.6 Violent behavior; R19.7 Diarrhea, unspecified; Y90.1 Blood alcohol level of 20-39 mg/100 ml; Z78.1 Physical restraint status
CPT/HCPCS: 36415; 51702; 70450; 71045; 80053; 80306; 80320; 81001; 82550; 83605; 83690; 83735; 84100; 85025; 85610; 87040; 87086; 93005; 93306; 93880; 95816; 96361; 96372; 96374; 96376; 99285